=== PATIENT | female | born 1960 | race Caucasian/White ===

== ENCOUNTER 2018-06-20 15:01 | Emergency (ER) | payer MEDICAID ==
[~2018-06-20] VITALS: Ht 160 cm; Wt 124.7 kg
[2018-06-20 15:04] VITALS: BP_SYST 159
--- NOTE | 2018-06-20 15:07 | NUR ---
Patient to ER bed 04 to gown for evaluation. Side rails up.
--- NOTE | 2018-06-20 15:15 | NUR ---
Patient arrived ambulatory with steady gait, aaox4, and with mother escorting. Patient c/c of headache and unable to hear from left ear. Patient states intermittent nausea. Patient knows of history of diabetes and hypertension, and cancer survivor. Patient calm, will follow up and monitor patient for changes in status.
--- NOTE | 2018-06-20 15:17 | NUR ---
DYLAN Venegas NP at bedside examining patient.
[2018-06-20] MEDS ORDERED: KETOROLAC TROMETHAMINE 30 MG VIAL IVP ONE (15:30)
[2018-06-20] MEDS ORDERED: NACL 0.9% 1,000 ML IV ONE (15:30)
[2018-06-20] MEDS ORDERED: ONDANSETRON HCL 4 MG/2 ML VIAL IVP ONE (15:30)
[2018-06-20 17:55] VITALS: BP_SYST 132
--- NOTE | 2018-06-20 17:55 | NUR ---
Patient given written and verbal discharge instructions and verbalizes understanding. ER MD discussed with patient the results and treatment provided. Patient in stable condition. ID arm band removed. IV catheter removed intact and dressing applied, no active bleeding. Rx of Aspirin, Excedrin, Lisinopril, and Metformin given. Patient educated on pain management and to follow up with PMD. Pain Scale 2/10. Opportunity for questions provided and answered. Patient education provided on prescribed medications, need for PMD, and basic diabetes teaching and resources available.
== END 2018-06-20 17:55 | disposition home or self-care (01) ==
LOC: SED 15:01
DX: H61.23 Impacted cerumen, bilateral (principal); R51 Headache; E11.9 Type 2 diabetes mellitus without complications; I10 Essential (primary) hypertension; Z85.72 Personal history of non-Hodgkin lymphomas
CPT/HCPCS: 82962; 93005; 96374; 96375; 99284; J1885; J2405; J7030

== ENCOUNTER 2018-09-23 13:26 | Emergency (ER) | payer MEDICAID ==
[~2018-09-23] VITALS: Ht 160 cm; Wt 120.2 kg
[2018-09-23 13:26] VITALS: BP_SYST 161
[2018-09-23] MEDS ORDERED: LIDOCAINE 1% 10 MG/ML, 20 ML MDV INJ ONE (14:00)
[2018-09-23] MEDS ORDERED: CEPHALEXIN 500 MG CAPSULE PO ONE (15:00)
[2018-09-23] MEDS ORDERED: SULFAMETHOXAZOLE/TRIMETHOPR DS 1 TABLET PO ONE (15:00)
[2018-09-23 15:21] VITALS: BP_SYST 152
== END 2018-09-23 15:22 | disposition home or self-care (01) ==
LOC: SED 13:26
DX: L02.11 Cutaneous abscess of neck (principal); R06.00 Dyspnea, unspecified; E11.9 Type 2 diabetes mellitus without complications; I10 Essential (primary) hypertension; Z90.49 Acquired absence of other specified parts of digestive tract; Z85.72 Personal history of non-Hodgkin lymphomas; Z88.1 Allergy status to other antibiotic agents
CPT/HCPCS: 10060; 71045; 99283; J2001

== ENCOUNTER 2018-09-27 11:46 | Emergency (ER) | payer MEDICAID ==
[~2018-09-27] VITALS: Ht 160 cm; Wt 120.2 kg
[2018-09-27 11:58] VITALS: BP_SYST 161
== END 2018-09-27 14:40 | disposition home or self-care (01) ==
LOC: SED 11:46
DX: Z48.01 Encounter for change or removal of surgical wound dressing (principal); E11.9 Type 2 diabetes mellitus without complications; I10 Essential (primary) hypertension; Z88.1 Allergy status to other antibiotic agents; Z85.72 Personal history of non-Hodgkin lymphomas
CPT/HCPCS: 99283